=== PATIENT | female | born 1990 | race Caucasian/White ===

== ENCOUNTER 2021-06-01 20:12 | Outpatient (CLI) ==
[~2021-06-01] VITALS: Ht 162.6 cm; Wt 94.8 kg
[2021-06-01] MEDS ORDERED: PRENTAB9 PO (20:47)
== END 2021-06-01 21:30 | disposition home or self-care (01) ==
LOC: M LDO 20:12
PROVIDERS: ATTEND Obstetrics & Gynecology
DX: O60.03 Preterm labor without delivery, third trimester (principal); O26.893 Other specified pregnancy related conditions, third trimester; N89.8 Other specified noninflammatory disorders of vagina; Z3A.31 31 weeks gestation of pregnancy
CPT/HCPCS: 59025; 76815; 87081; G0378; G0463

== ENCOUNTER 2021-06-20 16:12 | Outpatient (CLI) ==
[~2021-06-20] VITALS: Ht 162.6 cm; Wt 95.6 kg
[~2021-06-20 16:12] MED LIST: PRENTAB9 PO
[2021-06-20 16:38] VITALS: BP 120/76
[2021-06-20 18:30] LABS: HEMATOCRIT 29.4 % (36.0-47.0); HEMOGLOBIN 9.5 g/dl (12.0-15.5); MEAN CORPUSCULAR HEMOGLOBIN 26.3 pg (27.0-33.0); MEAN CORPUSCULAR HGB CONC 32.3 g/dl (32.0-36.5); MEAN CORPUSCULAR VOLUME 81.4 fl (80.0-96.0); PLATELET COUNT, AUTOMATED 250 10^3/uL (150-450); RED BLOOD COUNT 3.61 10^6/uL (4.00-5.40); WHITE BLOOD COUNT 9.3 10^3/uL (4.0-10.0)
[2021-06-20 19:01] LABS: ALBUMIN 2.4 GM/DL (3.2-5.2); ALT/SGPT 13 U/L (12-78); BILIRUBIN,TOTAL 0.5 MG/DL (0.2-1.0); BLOOD UREA NITROGEN 7 MG/DL (7-18); CARBON DIOXIDE LEVEL 22 MEQ/L (21-32); CHLORIDE LEVEL 108 MEQ/L (98-107); CREATININE FOR GFR 0.54 MG/DL (0.55-1.30); GLOMERULAR FILTRATION RATE > 60.0 (>60); GLUCOSE, FASTING 89 MG/DL (70-100); POTASSIUM SERUM 3.5 MEQ/L (3.5-5.1); SODIUM LEVEL 139 MEQ/L (136-145); TOTAL PROTEIN 6.5 GM/DL (6.4-8.2)
[2021-06-20 19:16] LABS: APPEARANCE, URINE HAZY (CLEAR); BACTERIA, URINE AUTO NEGATIVE (NEGATIVE); BILIRUBIN, URINE AUTO NEGATIVE (NEGATIVE); BLOOD, URINE BLOOD NEGATIVE (NEGATIVE); COLOR, URINE YELLOW (YELLOW); GLUCOSE, URINE (UA) AUTO NEGATIVE (NEGATIVE); KETONE, URINE AUTO 1+ mg/dL (NEGATIVE); LEUKOCYTE ESTERASE, URINE AUTO 1+ (NEGATIVE); MUCUS, URINE SMALL (NEGATIVE); NITRITE, URINE AUTO NEGATIVE (NEGATIVE); PROTEIN, URINE AUTO 1+ mg/dL (NEGATIVE); RBC, URINE AUTO 2 /HPF (0-3); SPECIFIC GRAVITY URINE AUTO 1.023 (1.002-1.035); SQUAMOUS EPITHELIAL CELL UR AU 13 /HPF (0-6); WBC, URINE AUTO 3 /HPF (0-3)
[2021-06-20 19:33] VITALS: BP 114/70
== END 2021-06-20 19:40 | disposition home or self-care (01) ==
LOC: M LDO 16:12
PROVIDERS: ATTEND Obstetrics & Gynecology
DX: O26.893 Other specified pregnancy related conditions, third trimester (principal); R42 Dizziness and giddiness; R11.0 Nausea; O99.013 Anemia complicating pregnancy, third trimester; D64.9 Anemia, unspecified; Z3A.34 34 weeks gestation of pregnancy
CPT/HCPCS: 36415; 59025; 80053; 81001; 85027; 87086; 87426; G0378; G0463

== ENCOUNTER 2021-06-30 07:47 | Inpatient (IN) | payer OTHER ==
[2021-06-30] VITALS (16 sets, daily range): BP systolic 76–110; BP diastolic 48–63
[~2021-06-30] VITALS: Ht 162.6 cm; Wt 98.0 kg
[2021-06-30] MEDS ORDERED: IRON27TA2 PO (08:19)
[2021-06-30] MEDS ORDERED: HOME MED LIST COMPLETE! XX SCH (08:20)
[2021-06-30] MEDS ORDERED: LACTATED RINGER'S 1000 ML IV ONE (09:05)
[2021-06-30] MEDS ORDERED: ONDANSETRON 4MG/2ML VIAL IV PRN (09:10)
[2021-06-30] MEDS: LR 1,000 ML IV SCH ×2 (10:18→14:48)
[2021-06-30] MEDS ORDERED: ceFAZolin SOD 2 GM in IV 1 EA IV STA (12:16)
[2021-06-30] MEDS ORDERED: LIDOCAINE 1% MDV 20ML VIAL INFIL PRN (12:20)
[2021-06-30] MEDS ORDERED: OXYTOCIN DRIP 30 UNITS in IV 1 EA IV PRN ×4 (12:20)
[2021-06-30] MEDS ORDERED: METHYLERGONOVINE MALEATE 0.2 MG/ML VIAL (J2210) IM PRN (12:20)
[2021-06-30] MEDS ORDERED: CARBOPROST TROMETHAMINE 250 MCG/ML AMP IM PRN (12:20)
[2021-06-30] MEDS ORDERED: TRANEXAMIC ACID INJection 1,000 MG in NS 100 ML IV PRN (12:20)
[2021-06-30] MEDS ORDERED: OXYTOCIN INJ 10 UNITS/ML VIAL (J2590) IM PRN (12:20)
[2021-06-30] MEDS: BETAMETHASONE SOLUSPAN 6MG/ML 5ML VIAL (J0702 PER 3MG) IM SCH (12:46)
[2021-06-30 13:40] LABS: HEMATOCRIT 30.8 % (36.0-47.0); HEMOGLOBIN 9.9 g/dl (12.0-15.5); MEAN CORPUSCULAR HEMOGLOBIN 25.9 pg (27.0-33.0); MEAN CORPUSCULAR HGB CONC 32.1 g/dl (32.0-36.5); MEAN CORPUSCULAR VOLUME 80.6 fl (80.0-96.0); PLATELET COUNT, AUTOMATED 245 10^3/uL (150-450); RED BLOOD COUNT 3.82 10^6/uL (4.00-5.40); WHITE BLOOD COUNT 8.6 10^3/uL (4.0-10.0)
[2021-06-30] MEDS ORDERED: ceFAZolin SOD 1 GM in D5W MINI-BAG PLUS 50 ML IV SCH (21:00)
[2021-07-01] VITALS (16 sets, daily range): BP systolic 94–166; BP diastolic 53–90
[2021-07-01] MEDS: LR 1,000 ML IV SCH ×3 (03:40→12:21)
[2021-07-01] MEDS: BETAMETHASONE SOLUSPAN 6MG/ML 5ML VIAL (J0702 PER 3MG) IM SCH (07:45)
[2021-07-01] MEDS ORDERED: ACETAMINOPHEN 500 MG TAB PO PRN (18:25)
[2021-07-01 19:16] LABS: HEMATOCRIT 28.8 % (36.0-47.0); HEMOGLOBIN 9.3 g/dl (12.0-15.5); MEAN CORPUSCULAR HEMOGLOBIN 25.9 pg (27.0-33.0); MEAN CORPUSCULAR HGB CONC 32.3 g/dl (32.0-36.5); MEAN CORPUSCULAR VOLUME 80.2 fl (80.0-96.0); PLATELET COUNT, AUTOMATED 246 10^3/uL (150-450); RED BLOOD COUNT 3.59 10^6/uL (4.00-5.40); WHITE BLOOD COUNT 9.7 10^3/uL (4.0-10.0)
[2021-07-01 19:35] LABS: ALT/SGPT 12 U/L (12-78); BILIRUBIN,TOTAL 0.4 MG/DL (0.2-1.0); CREATININE FOR GFR 0.64 MG/DL (0.55-1.30); GLOMERULAR FILTRATION RATE > 60.0 (>60); LDH LACTATE DEHYDROGENASE 152 U/L (84-246); URIC ACID 3.5 MG/DL (2.6-6.0)
[2021-07-01 19:53] LABS: TOTAL PROTEIN,RANDOM URINE 19.3 MG/DL (0.0-12.0)
[2021-07-01] MEDS: PROMETHAZINE INJ 25 MG/ML VIAL (J2550) IV ONE ×2 (21:55→23:25)
[2021-07-01] MEDS: BUTORPHANOL 2 MG/ML INJ (J0595) IV ONE ×2 (21:55→23:25)
[2021-07-02] VITALS (31 sets, daily range): BP systolic 97–138; BP diastolic 51–75
[2021-07-02] MEDS: LR 1,000 ML IV SCH ×3 (01:05→18:21)
[2021-07-02] MEDS ORDERED: OXYTOCIN DRIP 30 UNITS in IV 1 EA IV SCH (07:55)
[2021-07-02] MEDS ORDERED: BUTORPHANOL 2 MG/ML INJ (J0595) IV ONE (20:15)
[2021-07-02] MEDS ORDERED: PROMETHAZINE INJ 25 MG/ML VIAL (J2550) IV ONE (20:15)
[2021-07-02 20:55] LABS: CORD GAS ABE A -0.5; CORD GAS HCO3 A 26.3 MEQ/L; CORD GAS HCO3 V 20.7 MEQ/L; CORD GAS O2 SAT A 27.1 %; CORD GAS O2 SAT V 84.4 %; CORD GAS PCO2 A 51.1 mmHg; CORD GAS PCO2 V 30.8 mmHg; CORD GAS PH A 7.329 UNITS; CORD GAS PH V 7.446 UNITS; CORD GAS PO2 A 14.2 mmHg; CORD GAS PO2 V 35.4 mmHg; CORD GAS SBC A 22.3 MEQ/L; CORD GAS SBC V 22.5 MEQ/L; CORD GAS TCO2 A 27.8 MEQ/L; CORD GAS TCO2 V 21.7 MEQ/L
[2021-07-02] MEDS ORDERED: MEASLES,MUMPS,RUBELLA VACCINE INJ (MMR-II) (90707) SC SCH (21:00)
[2021-07-02] MEDS ORDERED: DOCUSATE SODIUM 100MG CAPSULE PO PRN (21:00)
[2021-07-02] MEDS ORDERED: DIBUCAINE 1% OINTMENT 30GM TOP PRN (21:00)
[2021-07-02] MEDS ORDERED: ACETAMINOPHEN TAB 650MG DOSE (2X325MG) PO PRN (21:00)
[2021-07-02] MEDS ORDERED: IBUPROFEN 600MG TAB PO PRN (21:00)
[2021-07-02] MEDS ORDERED: ANUSOL HC CREAM 30GM TOP PRN (21:00)
[2021-07-02] MEDS ORDERED: MOM 30ML SUSPENSION UDC PO PRN (21:00)
[2021-07-02] MEDS ORDERED: ACETAMINOPHEN 500 MG TAB PO PRN (21:00)
[2021-07-02] MEDS ORDERED: RHOGAM 300 MCG (1500 IU) INJ (J2790) IM SCH (21:00)
[2021-07-02] MEDS: IBUPROFEN 800 MG TAB PO PRN (23:07)
[2021-07-03 05:45] VITALS: BP 101/64
[2021-07-03] MEDS: PRENATAL VITAMINS CHEWABLE TABLET PO SCH (08:54)
[2021-07-03 18:02] VITALS: BP 110/61
[2021-07-03] MEDS: IBUPROFEN 800 MG TAB PO PRN (19:29)
[2021-07-03 19:30] VITALS: BP 110/61
[2021-07-04 06:00] VITALS: BP 109/57
[2021-07-04] MEDS: PRENATAL VITAMINS CHEWABLE TABLET PO SCH (07:59)
[2021-07-04] MEDS ORDERED: FUROSEMIDE 10MG PER 1/2 TABLET PO ONE (12:00)
[2021-07-05] MEDS ORDERED: MACR100C43 PO (02:08)
== END 2021-07-04 11:46 | disposition home or self-care (01) | DRG 560 ==
LOC: M LDO 07:47 → M LDI 12:10 → M OBS 07-02 22:25
PROVIDERS: ADMIT Advanced Practice Midwife; ATTEND Advanced Practice Midwife
PROC: 10E0XZZ Delivery of Products of Conception, External Approach (ICD-10-PCS; principal; 2021-07-02)
PROC: 3E033VJ Introduction of Other Hormone into Peripheral Vein, Percutaneous Approach (ICD-10-PCS; 2021-07-02)
PROC: 10907ZC Drainage of Amniotic Fluid, Therapeutic from Products of Conception, Via Natural or Artificial Opening (ICD-10-PCS; 2021-07-02)
DX: O60.14X0 Preterm labor third trimester with preterm delivery third trimester, not applicable or unspecified (principal); O36.63X0 Maternal care for excessive fetal growth, third trimester, not applicable or unspecified; Z37.0 Single live birth; Z3A.35 35 weeks gestation of pregnancy; O69.81X0 Labor and delivery complicated by cord around neck, without compression, not applicable or unspecified; O13.4 Gestational [pregnancy-induced] hypertension without significant proteinuria, complicating childbirth; Z87.51 Personal history of pre-term labor; O76 Abnormality in fetal heart rate and rhythm complicating labor and delivery

== ENCOUNTER 2021-07-04 20:13 | Emergency (ER) | payer OTHER ==
[~2021-07-04] VITALS: Ht 162.6 cm; Wt 92.5 kg
[~2021-07-04 20:13] MED LIST changes: +IRON27TA2 PO
[2021-07-04 22:51] LABS: BASO % 0.2 % (0.0-1.0); EOS # 0.2 10^3/uL (0.0-0.5); EOS % 2.6 % (0.0-3.0); HEMOGLOBIN 9.6 g/dl (12.0-15.5); LYMPH # 1.6 10^3/uL (1.5-5.0); LYMPH % 16.6 % (24.0-44.0); MEAN CORPUSCULAR HEMOGLOBIN 25.7 pg (27.0-33.0); MEAN CORPUSCULAR VOLUME 80.4 fl (80.0-96.0); MONO # 0.6 10^3/uL (0.0-0.8); NEUTROPHILS # 6.9 10^3/uL (1.5-8.5); NEUTROPHILS % 73.5 % (36.0-66.0); PLATELET COUNT, AUTOMATED 263 10^3/uL (150-450); RED BLOOD COUNT 3.73 10^6/uL (4.00-5.40); WHITE BLOOD COUNT 9.4 10^3/uL (4.0-10.0)
[2021-07-04 23:22] LABS: CK-MB VALUE MASS < 1.0 NG/ML (<3.6); CPK CREATINE PHOSPHOKINASE 45 U/L (26-192); MB/CK RELATIVE INDEX 2.22 (< OR =4)
[2021-07-04 23:27] LABS: ALBUMIN 2.5 GM/DL (3.2-5.2); ALT/SGPT 17 U/L (12-78); BILIRUBIN,TOTAL 0.5 MG/DL (0.2-1.0); BLOOD UREA NITROGEN 8 MG/DL (7-18); CALCIUM LEVEL 8.5 MG/DL (8.5-10.1); CARBON DIOXIDE LEVEL 26 MEQ/L (21-32); CHLORIDE LEVEL 105 MEQ/L (98-107); CREATININE FOR GFR 0.58 MG/DL (0.55-1.30); GLOMERULAR FILTRATION RATE > 60.0 (>60); GLUCOSE, FASTING 77 MG/DL (70-100); NT-PRO BNP 40 PG/ML (<125); POTASSIUM SERUM 3.9 MEQ/L (3.5-5.1); SODIUM LEVEL 140 MEQ/L (136-145); TOTAL PROTEIN 5.9 GM/DL (6.4-8.2)
[2021-07-05 00:15] VITALS: BP 120/68
[2021-07-05] MEDS ORDERED: ACETAMINOPHEN TAB 650MG DOSE (2X325MG) PO ONE (01:15)
[2021-07-05] MEDS ORDERED: MACR100C43 PO (02:08)
== END 2021-07-05 01:33 | disposition home or self-care (01) ==
LOC: M ED 20:13
DX: R07.9 Chest pain, unspecified (principal); R94.31 Abnormal electrocardiogram [ECG] [EKG]; N39.0 Urinary tract infection, site not specified; R22.43 Localized swelling, mass and lump, lower limb, bilateral; Z88.0 Allergy status to penicillin; Z79.899 Other long term (current) drug therapy

== ENCOUNTER 2021-07-08 16:56 | Emergency (ER) | payer OTHER ==
[~2021-07-08] VITALS: Ht 162.6 cm; Wt 90.8 kg
[~2021-07-08 16:56] MED LIST changes: +MACR100C43 PO
[2021-07-08] MEDS ORDERED: KETOROLAC 30 MG/ML 1ML VIAL IV ONE (18:45)
[2021-07-08 20:12] LABS: BASO % 0.3 % (0.0-1.0); EOS # 0.2 10^3/uL (0.0-0.5); EOS % 3.4 % (0.0-3.0); HEMATOCRIT 33.5 % (36.0-47.0); HEMOGLOBIN 10.4 g/dl (12.0-15.5); LYMPH # 1.6 10^3/uL (1.5-5.0); LYMPH % 22.1 % (24.0-44.0); MEAN CORPUSCULAR HEMOGLOBIN 25.6 pg (27.0-33.0); MEAN CORPUSCULAR VOLUME 82.3 fl (80.0-96.0); MONO # 0.4 10^3/uL (0.0-0.8); NEUTROPHILS # 4.9 10^3/uL (1.5-8.5); NEUTROPHILS % 68.4 % (36.0-66.0); PLATELET COUNT, AUTOMATED 310 10^3/uL (150-450); RED BLOOD COUNT 4.07 10^6/uL (4.00-5.40); WHITE BLOOD COUNT 7.2 10^3/uL (4.0-10.0)
[2021-07-08 20:30] LABS: ALT/SGPT 35 U/L (12-78); BILIRUBIN,DIRECT 0.1 MG/DL (0.0-0.2); BILIRUBIN,TOTAL 0.3 MG/DL (0.2-1.0); BLOOD UREA NITROGEN 12 MG/DL (7-18); CALCIUM LEVEL 8.9 MG/DL (8.5-10.1); CARBON DIOXIDE LEVEL 25 MEQ/L (21-32); CHLORIDE LEVEL 107 MEQ/L (98-107); CREATININE FOR GFR 0.55 MG/DL (0.55-1.30); FREE T4 2.06 NG/DL (0.76-1.46); GLOMERULAR FILTRATION RATE > 60.0 (>60); GLUCOSE, FASTING 84 MG/DL (70-100); INR 0.92; LIPASE 89 U/L (73-393); POTASSIUM SERUM 4.1 MEQ/L (3.5-5.1); PROTHROMBIN TIME 12.8 SECONDS (12.7-14.5); SODIUM LEVEL 138 MEQ/L (136-145); TOTAL PROTEIN 6.7 GM/DL (6.4-8.2); URIC ACID 3.4 MG/DL (2.6-6.0)
[2021-07-08 20:31] LABS: PARTIAL THROMBOPLASTIN TIME 28.2 SECONDS (25.9-37.0)
[2021-07-08 20:45] LABS: D-DIMER QUANT 1932.74 ng/ml (<500)
[2021-07-08] MEDS ORDERED: ISOVUE-370 76% 100ML VIAL As Ordered ONE (21:34)
[2021-07-08] MEDS ORDERED: NS 1,000 ML IV ONE (23:25)
[2021-07-09] MEDS ORDERED: LEVO250T3 PO (01:22)
[2021-07-09] MEDS ORDERED: CEFA500C2 PO (01:54)
[2021-07-09] MEDS ORDERED: cefTRIAXone SOD 1 GM in D5W MINI-BAG PLUS 50 ML IV ONE (02:00)
[2021-07-09 04:44] VITALS: BP 108/69
== END 2021-07-09 04:50 | disposition home or self-care (01) ==
LOC: M ED 16:56
DX: E86.0 Dehydration (principal); D64.9 Anemia, unspecified; R00.2 Palpitations; N39.0 Urinary tract infection, site not specified; F41.8 Other specified anxiety disorders; Z88.0 Allergy status to penicillin
CPT/HCPCS: 70360; 71275; 80048; 80076; 81001; 83690; 83735; 84439; 84443; 84550; 85025; 85379; 85610; 85730; 87086; 93005; 93041; 94760; 96361; 96365; 96375; 99285; J0696; J1885; Q9967